=== PATIENT | female | born 1975 | race Two or more races ===

== ENCOUNTER 2024-02-10 07:11 | Day surgery (SDC) | payer MEDICAID ==
[2024-02-07 10:48] LABS: Basophils # (auto) 0 10 ^3/uL (0-0.2); Basophils % (auto) 0.5 % (0.0-2.0); Eosinophils # (auto) 0 10 ^3/uL (0-0.8); Eosinophils % (auto) 0.3 % (0.0-7.0); Hematocrit 42.7 % (36.0-46.0); Hemoglobin 14.5 g/dL (12.2-16.2); Mean Corpuscular Hemoglobin 30.7 pg (28.0-32.0); Mean Corpuscular Volume 90.4 fL (80.0-100.0); Monocytes # (auto) 0.7 10 ^3/uL (0-1.3); Monocytes % (auto) 7.9 % (0.0-12.0); Neutrophils # (auto) 5.4 10 ^3/uL (1.6-8.6); Neutrophils % (auto) 58.3 % (37.0-80.0); Platelet Count (auto) 267 10^3/uL (140-450); Red Blood Cells 4.72 10^6/uL (4.0-5.20); Red Cell Distribution Width 13.1 % (11.8-14.3); White Blood Cell 9.2 10^3/uL (4.4-10.8)
[2024-02-07 11:10] LABS: Alanine Aminotransferase 25 U/L (7-40); Albumin 4.8 g/dL (3.2-4.8); Alkaline Phosphatase 107 U/L (46-116); Anion Gap 8 (5-15); Aspartate Aminotransferase 18 U/L (13-40); BUN/Creatinine Ratio 11.5 (10.0-20.0); Blood Urea Nitrogen 7 mg/dL (9-23); Carbon Dioxide 26 mmol/L (20-31); Chloride 106 mmol/L (98-107); Glucose 98 mg/dL (74-106); Potassium 4.1 mmol/L (3.5-5.1); Sodium 140 mmol/L (136-145); Total Protein 7.3 g/dL (5.7-8.2)
[2024-02-07 11:16] LABS: INR 1.01 (0.9-1.15); Partial Thromboplastin Time 25.6 SEC (24.5-34.5); Prothrombin Time 10.7 sec (9.3-11.8)
[~2024-02-10] VITALS: Ht 154.9 cm; Wt 74.8 kg
[2024-02-10] MEDS ORDERED: FLUMAZENIL 0.1 MG/ML INJ 10ML MDV IV ONE (08:17)
[2024-02-10] MEDS ORDERED: NALOXONE HCL 0.4 MG/ML VIAL ONE (08:17)
[2024-02-10] MEDS ORDERED: SODIUM CHLORIDE LOCK 10 ML ONE (08:18)
[2024-02-10] MEDS ORDERED: diphenhdrAMINE HCL 50 MG/1 ML VL ONE ×2 (08:19→09:48)
[2024-02-10] MEDS ORDERED: MIDAZOLAM HCL 2MG/2ML 2ml VIAL (1mg/ml) ONE (08:19)
[2024-02-10 08:38] VITALS: PULSE 58; RESP 12; O2SAT 100
[2024-02-10] MEDS: MIDAZOLAM HCL 5 MG/ML-1ML VIAL ONE (08:40)
[2024-02-10] MEDS: fentaNYL CITRATE 100 MCG/2 ML VL ONE (08:40)
[2024-02-10] MEDS: MIDAZOLAM HCL 2MG/2ML 2ml VIAL (1mg/ml) ONE (08:49)
[2024-02-10 08:55] VITALS: PULSE 59; RESP 17; TEMP 97.4; O2SAT 95
--- NOTE | 2024-02-10 08:57 | DVHNC2 ---
Procedure - February 10, 2024 PROCEDURE PERFORMED BY: Amaris Capps MD REFERRING PROVIDER: Chadwick Glaser MD PROCEDURE PERFORMED: 1. ESOPHAGOGASTRODUODENOSCOPY WITH BIOPSY MODERATE SEDATION PRE-PROCEDURE DIAGNOSIS: 1. Epigastric abdominal pain POSTPROCEDURE DIAGNOSIS: 1. Normal duodenum to the 3rd portion 2. Mild gastritis body and antrum, biopsies taken 3. Mild erosive esophagitis, LA grade A 4. 2 cm hiatal hernia MEDICATIONS USED: 6 mg IV Versed, 75 mcg of Fentanyl IV DETAILS OF THE PROCEDURE: Informed consent was obtained after risks benefits and alternatives were discussed at length with patient patient gave consent to the procedure as well as medication used for sedation. The patient was placed in left lateral decubitus position. An Olympus endoscope was inserted into the oropharynx advanced into the esophagus then into the stomach and into the duodenal bulb and duodenum. The duodenal bulb and duodenum were normal. The scope was withdrawn and the mucosa carefully evaluated. The patient had a normal duodenum to the 3rd portion. The stomach showed mild gastritis in the body and antrum, biopsies were taken for pathology and H pylori. Retained secretions were suctioned from washed off. Retroflexion showed a small hiatal hernia. The scope was then withdrawn. The Z-line was at 37 cm, patient had a 2 cm hiatal hernias and mild erosive esophagitis. The scope was then withdrawn and the procedure completed. The patient tolerated the procedure well. IMPRESSION: 1. Mild erosive gastritis 2. Mild erosive esophagitis 3. 2 cm hiatal hernia Patient's symptoms may be secondary to gastritis versus other. RECOMMENDATIONS: 1. Follow up with procedure and pathology results 2. Anti-reflux precautions, weight loss, avoid spicy food, caffeine, tobacco, alcohol, chocolate, late night eating. 3. Patient should be on a proton pump inhibitor daily 30 minutes before breakfast 4. Consider further workup with imaging, colonoscopy, or lab studies if the symptoms persist or worsen. I WOULD LIKE TO THANK DR. GLASER FOR THIS REFERRAL AMARIS CAPPS MD Feb 10, 2024 08:57
[2024-02-10 09:40] VITALS: BP 120/63; PULSE 59; RESP 20; O2SAT 95
[2024-02-10] MEDS ORDERED: MIDAZOLAM HCL 5 MG/ML-1ML VIAL ONE (09:48)
[2024-02-10] MEDS ORDERED: fentaNYL CITRATE 100 MCG/2 ML VL ONE (09:49)
== END 2024-02-10 10:02 | disposition home or self-care (01) ==
LOC: GI 07:11
PROVIDERS: ATTEND Specialist
DX: R10.13 Epigastric pain (principal); K29.50 Unspecified chronic gastritis without bleeding; B96.81 Helicobacter pylori [H. pylori] as the cause of diseases classified elsewhere; K22.10 Ulcer of esophagus without bleeding; K21.00 Gastro-esophageal reflux disease with esophagitis, without bleeding; K44.9 Diaphragmatic hernia without obstruction or gangrene; Z90.49 Acquired absence of other specified parts of digestive tract
CPT/HCPCS: 36415; 43239; 80053; 84702; 85025; 85610; 85730; 88305; 88312; 88342; J1200; J2250; J3010; 99152